=== PATIENT | female | born 1965 ===

== ENCOUNTER 2025-01-05 05:54 | Day surgery (SDC) | payer OTHER ==
[2025-01-04 12:10] VITALS: BP 122/80
[2025-01-05 10:01] LABS: INR 1.15; PROTHROMBIN TIME 12.4 SECONDS (9.0-11.5)
[2025-01-05] MEDS ORDERED: CEFAZOLIN SODIUM 1,000 MG VIAL ONE ×2 (10:39→11:58)
[2025-01-05] MEDS ORDERED: POVIDONE-IODINE 118 ML BOTT TOP ONE (11:57)
[2025-01-05] MEDS ORDERED: POVIDONE-IODINE SCRUB 118 ML BOTT TOP ONE (11:57)
[2025-01-05] MEDS ORDERED: GENTAMICIN SULFATE 40 MG/ML VIAL ONE (11:57)
[2025-01-05] MEDS ORDERED: CHLORHEXIDINE GLUCONATE 120 ML BOTTLE TOP ONE (11:57)
== END 2025-01-05 18:25 | disposition home or self-care (01) ==
LOC: CIR.AMB 05:54
PROVIDERS: ATTEND Surgery
DX: D05.12 Intraductal carcinoma in situ of left breast (principal); R59.0 Localized enlarged lymph nodes; Z91.013 Allergy to seafood; Z91.040 Latex allergy status